=== PATIENT | female | born 1970 | race Caucasian/White ===

== ENCOUNTER 2024-07-07 13:49 | Outpatient (CLI) | payer OTHER, SELFPAY ==
--- OUTSIDE RECORDS SUMMARY | 2024-07-07 14:13 | XMS_ITS | Clinical Summary ---
Author Organization [facility] Address [address] [place] [address] Care Team Providers Care Marketing Analytics Lead Name Role Phone Galindo Olivier MD Primary Care Provider [phone] Source Comments [facility],non-owned Affiliates and Associated Physician Practices is amultiple site organization consisting of ambulatory clinics and hospital sitesin [place] and [place]. This disclosure is being madepursuant to the Care Everywhere program and may not contain all information available regarding this patient. Last updated 17.[facility] Medications * Be aware that medications may not be up to date on this document. Alwaysverify current medications with the patient. Iron, Ferrous Sulfate, 142 (45 FE) MG TBCR Take 25 mg by mouth 2 times daily Active norethindrone (ORTHO MICRONOR; NOR-QD; OCHOA; LORENA; KALEY-BE; GWEN; JOLIVETTE) 0.35 MG tablet Take 1 tablet by mouth once daily Active methylPREDNISol one (MEDROL) 4 MG tabletIndicatio ns:Pain of right clavicle Take 1 tablet by mouth as directed 21 Each 09/13/2017 Active Social History Tobacco Use Types Packs/Day Years Used Date Smoking Tobacco: Never Assessed Comments Unknown Sex and Gender Information Value Date Recorded Sex Assigned at Not on file Legal Sex Female 3:28 PM CDT Gender Identity Not on file Sexual Orientation Not on file Last Filed Vital Signs Vital Sign Reading Time Taken Comments Blood Pressure 148/88 09/13/2017 11:03 AM CDT Pulse 65 09/13/2017 11:03 AM CDT Temperature 36.7 C (98 F) 09/13/2017 11:03 AM CDT Respiratory Rate - - Oxygen Saturation - - Inhaled Oxygen Concentration - - Weight 67.1 kg (148 lb) 09/13/2017 11:03 AM CDT Height - - Body Mass Index - - Plan of Treatment Health Maintenance Due Date Last Done Comments COLOGUARD (AGES 45-75) - COL ON CA SCREENING 1968 COLON MONITORING 1968 COLONOSCOPY - COLON CA SCREENING 1968 CT COLONOGRAPHY - COLON CA SCREENING 1968 Colorectal Cancer Screening 1968 FIT - COLON CA SCREENING 1968 FLEX SIG - COLON CA SCREENING 1968 LIPID TESTING 1968 MAMMOGRAM 1968 HIV SCREENING 06/09/1983 HEPATITIS C SCREENING 06/04/1986 DTAP/TDAP/TD VACCINES (1 - Tdap) 06/09/1987 HEPATITIS B VACCINE (1 of 3 - 19+ 3-dose series) 06/09/1987 PNEUMOCOCCAL VACCINE 50+ (1 of 1 - PCV) 2018 ZOSTER VACCINE (1 of 2) 2018 COVID-19 VACCINE (1 - 2023-2 5 season) 2023 DEPRESSION SCREENING 02/06/2024 INFLUENZA VACCINE (Season Ended) 2024 HIB VACCINE Aged Out No longer eligi ble based on patient's age to complete this topic HPV VACCINE Aged Out No longer eligi ble based on patient's age to complete this topic MENINGOCOCCAL (Group B) VACC INE SHARED DECISION-MAKING Aged Out No longer eligibl e based on patient's age to complete this topic MENINGOCOCCAL GROUPS A/C/Y/W VACCINE Aged Out No longer eligible b ased on patient's age to complete this topic Insurance [employer] Care Teams Marketing Analytics Lead Relationship Specialty Start Date End Date Galindo Olivier MD [address] [place] [address] PCP - General Family Medicine 09/13/17
--- OUTSIDE RECORDS SUMMARY | 2024-07-07 14:13 | XMS_ITS | Data Portability ---
Author Organization [place] - [facility] Women' s Counts include 234 beds at the [facility], EFF_Historical Results Address [address] [place] [address] Assessment Encounter Date Assessment Date Assessment LastModified by Organization Details LastModified Time 12/18/2023 12/18/2023 Persistent cervical dysplasia- pt has had cryo, LEEP in the past. Her transformation zone cannot be visualized, and I am unable to detect ectocervical dysplasia. Her ECC is also negative, and her LEEP is negative. Given persistence of abnormal pap smears and inability to make accurate tissue diagnosis, I have recommended hysterectomy. Pt would like this as well. She has been having this issue since 2008. The patient was counseled on the risks, benefits, and alternatives to hysterectomy. We specifically discussed the route of hysterectomy and determined that total laparoscopic hysterectomy would be the best route in her particular case. Risks, benefits, and alternatives were reviewed including but not limited to pain, infection, bleeding, injury to surrounding viscera, need for additional procedures or larger incisions. We discussed anticipated recovery and restrictions as well as typical outpatient nature of procedure. When applicable alternative medical and/or surgical treatments were reviewed. We discussed that typical recommendations are to complete bilateral salpingectomy and cystoscopy with hysterectomy when possible, and she is agreeable to this as well. She would also like removal of ovaries due to her menopausal status. [email or web address] Not available 12/18/2023 15:24:29 02/25/2024 02/25/2024 1. You are scheduled for surgery at [facility] on 03/10/2024 at Time: 1330. Pre-register at surgery facility. Facility will call 5-7d before the surgery with arrival time. 2. Planned Procedure: TLH/BSO/Cysto by 3. Pre-surgery will discuss when to stop eating and drinking before surgery. 4. You will need to have someone bring you to the facility and take you home after the procedure. 5. Eat plenty of protein in diet leading up to surgery. 6. Try to walk 30 minutes per day leading up to surgery. 7. If smoker try to stop before surgery. If using THC don't use leading up to surgery. 8. Shower the night before the surgery and 2 hours before the surgery. Some facilities will provide special tower cleaner. 9. Pelvic rest after surgery for 6 weeks 10. Theracran (cranberry ) supplement isrecommended to be started 2 days before surgery . nsuck Not available 02/25/2024 11:20:28 03/24/2024 03/24/2024 Path and post op pics reviewed. Path benign. BURAK I of cx. Should not need further paps since no cancer. Can discuss with BRITNI at her post op visit. use stool softeners and miralax prn Pelvic rest 8wk Okay for short walks. No lifting greater than 15 lbs. Okay to see Dr. Kwaku Schmitz and plan for removal of implants in May ns Not available 03/24/2024 13:52:45 04/21/2024 04/21/2024 Restrictions lifted Continue yearly paps per pt request [email or web address] Not available 04/21/2024 12:27:47 Plan of Treatment Reminders Order Date Submit Date Provider Last Modified By Organization Details Last Modified Time Details Appointments Annual Exam 10 2024 10:00A M CHERRY BLACKWELL MD Not available Not available Not available Annual Exam 10 2025 10:30A M CHERRY BLACKWELL MD Not available Not available Not available Lab pap, LB + HR HPV + reflex HPV (16+18) - 05/10/06 LGSIL Cx bx & ECC negative ASCUS +HRHPV8/2 05/14 Cx bx & ECC negative LGSIL +HRHPV4/2 09/18 ECC negative LGSIL +HRHPV2/2 02/24 Cx bx BURAK 1; ECC negative; 04/14/20 LGSIL +HRHPV4/ Cx bx negative; ECC BURAK 110/25/21 LGSIL3/14 LGSIL +HRHPV106/26 LGSIL -HRHPV5/3 0 LGSIL +HRHPV6/2 10/28 Cx bx & ECC negative LEEP negative ASCUS +HRHPV6/1 09/28 LGSIL 2023 024 CHRISTIANNE [facility], [address] [place], [address], 12/28/2023 10:34:33 Referral None recorded. Procedures None recorded. Surgeries total hysterect mague, laparosco pic, with bilateral salpingec jimmy (SURG) 2023 025 [email or web address] Not available 03/13/2024 08:38:07 Imaging None recorded. Medication Orders None recorded. Patient TargetsNo targets recorded. Patient Instructions Encounter Date Encounter Id Patient Instructions Last Modified By Organization Details Last Modified Time 12/28/2023 [id number] pt plans mammogram in 2024 Keep pre-op appt 02-25-24 [email or web address] Not available 12/28/2023 10:34:46 Reason for Referral None Reported. Results Created Date Observation Date Name Description Value Unit Range Abnormal Flag Note LastModifiedBy Organization Detail LastModifiedTime 12/03/1912/06/2023 TISSU E PATHO LOGY clinical information LSIL, +HR HPV 09/26 Not Available [facility] [address] [place], [address], 12/06/2023 15:18:45 12/03/1912/06/2023 TISSU E PATHO LOGY pathologist Rene Greer M.D., Board Certi fied in Anato inocencia Patho logy and Clini namrata Patho logy. (annie hicks) Not Available [facility] [address] [place], [address], 12/06/2023 15:18:45 12/03/1912/06/2023 TISSU E PATHO LOGY report notes Cyto/ Histo corre latio n canno t be perfo rmed since the abnor mal cells in the cervi namrata cytol ogy speci men(s ) were squam ous and the tissu e is prima rily gland ular. Not Available [facility] [address] [place], [address], 12/06/2023 15:18:45 12/03/1912/06/2023 TISSU E PATHO LOGY A source Endoc ervix , curet tage Not Available [facility] [address] [address], [place], [address], 12/06/2023 15:18:45 12/03/1912/06/2023 TISSU E PATHO LOGY A gross description Speci men is recei garcia in 10% neutr al buffe red forma ailyn, label ed with multi ple patie nt ident ifier s and consi sts of multi ple fragm ents of mucoi d mater ial aggre gatin g to 0.5 x 0.5 x 0.1 cm, irreg ular in shape and yello w-whi te in color . The speci men is entir italo submi tted in one casse tte. Gross exam( s) perfo rmed at: [facility] [place] [address] [place] [address], [place] [address] Labor atory Direc tor: MARGA Yan MD Not Available [facility] [address], [place], [address], 12/06/2023 15:18:45 12/03/1912/06/2023 TISSU E PATHO LOGY A diagnosis Benig n endoc ervic al tissu e with mucus and infla mmato ry debri s. No featu res diagn ostic of dyspl daljit or malig krysta . Not Available [facility] [address] [place], [address], 12/06/2023 15:18:45 12/13/1912/14/2023 URINA LYSIS , COMPL ETE color DARK YELLOW yellow normal Not Available [address], [address], 12/14/2023 08:53:02 12/13/1912/14/2023 URINA LYSIS , COMPL ETE appearance CLEAR clear normal Not Available [address], [address], 12/14/2023 08:53:02 12/13/1912/14/2023 URINA LYSIS , COMPL ETE specific gravity 1.025 1.001- 1.035 normal Not Available [address], [address], 12/14/2023 08:53:02 12/13/19 24 12/14/2023 URINA LYSIS , COMPL ETE pH < OR = 5.0 5.0-8. 0 normal Not Available [address], [address], 12/14/2023 08:53:02 12/13/19 24 12/14/2023 URINA LYSIS , COMPL ETE glucose NEGATI VE negati ve normal Not Available [address], [address], 12/14/2023 08:53:02 12/13/19 24 12/14/2023 URINA LYSIS , COMPL ETE bilirubin NEGATI VE negati ve normal Not Available [address], [address], 12/14/2023 08:53:02 12/13/19 24 12/14/2023 URINA LYSIS , COMPL ETE ketones NEGATI VE negati ve normal Not Available [address], [address], 12/14/2023 08:53:02 12/13/19 24 12/14/2023 URINA LYSIS , COMPL ETE occult blood TRACE negati ve abnormal Not Available [address], [address], 12/14/2023 08:53:02 12/13/19 24 12/14/2023 URINA LYSIS , COMPL ETE protein TRACE negati ve abnormal Not Available [address], [address], 12/14/2023 08:53:02 12/13/19 24 12/14/2023 URINA LYSIS , COMPL ETE nitrite NEGATI VE negati ve normal Not Available [address], [address], 12/14/2023 08:53:02 12/13/19 24 12/14/2023 URINA LYSIS , COMPL ETE leukocyte esterase NEGATI VE negati ve normal Not Available [address], [address], 12/14/2023 08:53:02 12/13/19 24 12/14/2023 URINA LYSIS , COMPL ETE WBC 0-5 /hpf < or = 5 normal Not Available [address], [address], 12/14/2023 08:53:02 12/13/19 24 12/14/2023 URINA LYSIS , COMPL ETE RBC 0-2 /hpf < or = 2 normal Not Available [address], [address], 12/14/2023 08:53:02 12/13/19 24 12/14/2023 URINA LYSIS , COMPL ETE squamous epithelial cells 10-20 /hpf < or = 5 abnormal Not Available [address], [address], 12/14/2023 08:53:02 12/13/19 24 12/14/2023 URINA LYSIS , COMPL ETE bacteria NONE SEEN /hpf none seen normal Not Available [facility] [address], [address], 12/14/2023 08:53:02 12/13/19 24 12/14/2023 URINA LYSIS , COMPL ETE calcium oxalate crystals MODERA TE /hpf none or few abnormal Not Available [facility] [address], [address], 12/14/2023 08:53:02 12/13/19 24 12/14/2023 URINA LYSIS , COMPL ETE hyaline cast 10-20 /lpf none seen abnormal Not Available [facility] [address], [address], 12/14/2023 08:53:02 12/13/19 24 12/14/2023 CULTU RE, URINE , ROUTI NE culture, urine, routine SEE NOTE CULTU RE, URINE , ROUTI NE Micro Numbe r: [id number] Test Statu s: Final Speci men Sourc e: Urine Speci men Quali ty: Adequ ate Resul t: No Growt h Not Available [address], [address], 12/14/2023 20:15:51 03/05/19 25 03/05/2024 HEMAG REGAN WBC 6.94 x10'3 /uL 4.60-9 .10 Not Available [address], [address], 03/05/2024 12:54:41 03/05/19 25 03/05/2024 HEMAG REGAN RBC 5.04 x10'6 /uL 3.90-5 .00 high Not Available [address], [address], 03/05/2024 12:54:41 03/05/19 25 03/05/2024 HEMAG REGAN hemoglobin 14.9 g/dL 11.8-1 4.7 high Not Available [address] [place], [address], 03/05/2024 12:54:41 03/05/19 25 03/05/2024 HEMAG REGAN hematocrit 45.0 % 36.3-4 5.2 Not Available [address], [address], 03/05/2024 12:54:41 03/05/19 25 03/05/2024 HEMAG REGAN MCV 89.3 fL 80.0-9 8.0 Not Available [address], [address], 03/05/2024 12:54:41 03/05/19 25 03/05/2024 HEMAG REGAN MCH 29.6 pg 26.8-3 2.1 Not Available [address], [address], 03/05/2024 12:54:41 03/05/19 25 03/05/2024 HEMAG REGAN MCHC 33.1 g/dL 30.7-3 4.2 Not Available [address], [address], 03/05/2024 12:54:41 03/05/19 25 03/05/2024 HEMAG REGAN RDW 13.7 % 12.0-1 4.8 Not Available [address], [address], 03/05/2024 12:54:41 03/05/19 25 03/05/2024 HEMAG REGAN platelet count 341 x10'3 /uL 145-35 8 Not Available [address], [address], 03/05/2024 12:54:41 03/05/19 25 03/05/2024 HEMAG REGAN MPV 10.2 fL 8.8-12 .3 Not Available [address], [address], 03/05/2024 12:54:41 03/05/1903/05/2024 BASIC METAB OLIC PANEL sodium 137 mmol/ L 136-14 5 Not Available [address], [address], 03/05/2024 13:14:16 03/05/1903/05/2024 BASIC METAB OLIC PANEL potassium 3.8 mmol/ L 3.5-5. 1 Not Available [address], [address], 03/05/2024 13:14:16 03/05/1903/05/2024 BASIC METAB OLIC PANEL chloride 105 mmol/ L 97-115 Not Available [address], [address], 03/05/2024 13:14:16 03/05/1903/05/2024 BASIC METAB OLIC PANEL total CO2 26.0 mmol/ L 21.0-3 2.0 Not Available [address], [address], 03/05/2024 13:14:16 03/05/1903/05/2024 BASIC METAB OLIC PANEL glucose 89 mg/dL 74-106 Not Available [address], [address], 03/05/2024 13:14:16 03/05/1903/05/2024 BASIC METAB OLIC PANEL BUN 12 mg/dL 7-18 Not Available [address], [address], 03/05/2024 13:14:16 03/05/1903/05/2024 BASIC METAB OLIC PANEL creatinine 0.77 mg/dL 0.55-1 .02 Not Available [address], [address], 03/05/2024 13:14:16 03/05/19 25 03/05/2024 BASIC METAB OLIC PANEL calcium 9.3 mg/dL 8.5-10 .1 Not Available [facility] [address] [place], [address], 03/05/2024 13:14:16 03/05/19 25 03/05/2024 BASIC METAB OLIC PANEL anion gap 6.0 mmol/ L 2.0-10 .0 Not Available [facility] [address] [place], [address], 03/05/2024 13:14:16 03/05/19 25 03/05/2024 BASIC METAB OLIC PANEL osmolality calc 283 mOsm/ kg REFER ENCE RANGE NOT ESTAB LISHE D Not Available [facility] [address] [place], [address], 03/05/2024 13:14:16 03/05/19 25 03/05/2024 BASIC METAB OLIC PANEL est GFR >90 mL/mi n/1.7 3_M2 >89 Not Available [facility] [address] [place], [address], 03/05/2024 13:14:16 03/05/19 25 03/05/2024 BASIC METAB OLIC PANEL GFR notes GFR REFERE NCES: THE ESTIM ATED GFR IS CALCU LATED USING THE 2020 CKD-E PI EQUAT ION. THE FOLLO WING CATEG ORIES FOR GRADI NG RENAL FUNCT ION ARE RECOM JENNIFER D BY THE INTER NATIO NAL SOCIE TY OF NEPHR OLOGY (KDIG O 2012 CLINI NAMRATA PRACT ICE GUIDE LINE) . G1,NO RMAL OR HIGH: >89 ml/mi n/1.7 3 m2 G2,ME LDLY DECRE ASED: 60-89 ml/mi n/1.7 3 m2 G3A,M ILDLY TO MODER ATELY DECRE ASED: 45-59 ml/mi n/1.7 3 m2 G3B,M ODERA TELY TO SEVER ITALO DECRE ASED: 30-44 ml/mi n/1.7 3 m2 G4,SE VEREL Y DECRE ASED: 15-29 ml/mi n/1.7 3 m2 G5,KI DNEY FAILU RE: <15 ml/mi n/1.7 3 m2 Not Available [address], [address], 03/05/2024 13:14:16 03/05/19 25 03/05/2024 TYPE AND SCREE N ABO/Rh(D) B POSITI VE Not Available [address], [address], 03/05/2024 14:27:11 03/05/19 25 03/05/2024 TYPE AND SCREE N antibody screen NEGATI VE Not Available [address], [address], 03/05/2024 14:27:11 03/05/19 25 03/05/2024 TYPE AND SCREE N xm expiration 2024,2 359 Not Available [facility] [address] [place], [address], 03/05/2024 14:27:11 03/10/19 25 03/10/2024 PREG TEST, URINE preg test, urine NEGATI VE Not Available [address], [address], 03/10/2024 16:05:34 03/10/19 25 03/14/2024 S SURGI NAMRATA PATHO LOGY path report [facility] Dep[facility] tment of Labor atory Medic ine [address] [facility] [address] [facility] [facility] [place] [address] Telep christian: , exten [place] [id number] 07 Patho logy Repor t Surgi namrata Patho logy Repor t Name: FRANCK MONTOYA Speci men #: [id number] Age: [birth year] (Age: 53) Locat ion: [facility] IF Sex: F Proce dure Date: 025 Hospi toni #: [id number] 139 Date Recei garcia: 2/5/[birth year] 025 Date Repor hallie: 025 Provi sadaf: RUBIO Catherine MD [facility] e: Uteru s, cervi x, bilat eral tubes , and ovari es Clini namrata Histo ry: Cervi namrata dyspl daljit, histo ry of vane l Paps, and LEEP in 2022 negat bryant FINAL DIAGN OSIS: Uteru s, cervi x, bilat eral fallo pian tubes , and ovari es, hyste recto my: -Cerv ix: Focal low grade squam ous intra epith elial lesio n. Negat bryant for high grade squam ous intra epith elial lesio n. -Endo metri um: Inact bryant endom etriu m with no evide nce of hyper plasi a or malig krysta . -Myom etriu m: Benig n leiom yomat a. -Fall opian tubes : No signi fican t histo patho logic abnor malit ies. -Ovar ies: No signi fican t histo patho logic abnor malit ies. Gross Descr iptio n: Recei garcia in forma ailyn, label ed with a patie nt's label and uter us, cervi x, bilat eral fallo pian tubes and ovari es, is an intac t uteru s with attac hed cervi x and attac hed bilat eral adnex a. The entir e speci men is a 74 g. The uteru s is a 48 g, 3.7 cm fundu s to cervi x, 3.8 cm cornu to cornu , and 3.1 cm anter ior to poste rior. The seros al surfa ce is purpl e-mendieta , taylor h, and glist ening . The cervi x is 3.0 cm in lengt h and 2.[address]. The ectoc ervix is 3.1 x 3.0 cm, purpl e-mendieta , and taylor h with a 0.9 cm ovoid os. The cervi x is inked follo ws: Blue- anter ior, black -post erior , and green -endo cervi x. The speci men is bival garcia. The endoc ervix is 3.0 cm super ior-t o-inf erior with pink- mendieta mucos a that exhib its a herri ngbon e appea kevin . The uteri ne cavit y is 2.5 cm super ior-t o-inf erior and 2.1 cm cornu to cornu with pink- mendieta mucos a and scant petec hiae. Secti ons revea l 2 white -mendieta isrrael d nodul es on the poste rior uteru s rangi ng from 0.2 to 0.8 cm in [facility] [place]. There are no areas of softe rachel, hemor rhage , or necro sis. The pink- mendieta endom etria l avera ge thick ness is 0.1 cm and the maxim um uninv olved myome trial thick ness is 1.4 cm. The right ovary is 3 g and 2.3 x 1.7 x 0.9 cm. The seros al surfa ce is white -mendieta and sligh tly cereb rifor m. Secti ons revea l white -mendieta cut surfa elizabeth. There are no gross ly ident ifiab le chun s or lesio ns. The right fimbr iated fallo pian tube is 5.2 cm in lengt h and 0.[address] The fimbr ia are purpl e-bro wn. The seros al surfa ce is purpl e-mendieta , taylor h, and convo luted . There are multi ple parat ubal cyst rangi ng from 0.1 to 0.3 cm in [facility] [place] that conta in straw -colo red fluid . Secti ons revea l purpl e-mendieta cut surfa elizabeth. A pinpo int lumen is ident ified . There are no gross ly ident ifiab le chun s or lesio ns. The left ovary is cysti c, 18 g, and 4.1 x 3.4 x 3.0 cm. The seros al surfa ce is white -mendieta and taylor h. Secti ons revea l 2 cyst there are 0.5 and 4.1 cm in [facility] est [facility] [place] that conta in straw -colo red fluid . Vane l ovari an paren chyma is ident ified . There are no gross ly ident ifiab le chun s, lesio ns, or papil carolina excre scenc es. The left fimbr iated fallo pian tube is 5.7 cm in lengt h and 0.[address] The fimbr ia are purpl e-bro wn. The seros al surfa ce is purpl e-mendieta , taylor h, and convo luted . Secti ons revea l purpl e-mendieta cut surfa elizabeth. There are no gross ly ident ifiab le chun s or lesio ns. Repre senta tive secti ons are submi tted as follo ws: 1-412 :00 to 3:00 cervi x 5-73: 00 to 6:00 cervi x 8-116 :00 to 9:00 cervi x 12-15 9:00 to 12:00 cervi x 16ful l-thi cknes s secti on of endom yomet rium 17add ition al endom yomet rium 18pos terio r whorl ed nodul es entir italo submi tted 19rep resen tativ e secti on of right ovary 20 - right fimbr ia entir italo submi tted and repre senta tive cross -sect ions of right fallo pian tube 21rep resen tativ e secti ons of left ovary 22lef t fimbr ia entir italo submi tted and repre senta tive cross -sect ions of left fallo pian tube Gross exami natio n (when appli cable ) was perfo rmed at [facility], [address] [facility], [place] [address] . This case was inter prete d and beth d out at [facility] [address] [place] [address] . Emmy sherlynon christian y Beth d Out DOROTHEA Jansen MD Not Available [address], [address], 03/14/2024 11:38:19 12/13/19 24 04/27/2022 MAMMO , scree rachel, bilat eral No observ ation record ed. [facility] [address] [place], [address], 12/13/2023 11:53:41 12/13/19 24 12/13/2023 US, pelvi s No observ ation record ed. [facility] [address] [address], [place], [address], 12/13/2023 12:48:22 04/01/19 25 04/14/2020 imagi ng/di agnos tic resul t No observ ation record ed. Not Available 04/01/2024 05:33:37 04/01/19 25 04/18/2021 imagi ng/di agnos tic resul t No observ ation record ed. Not Available 04/01/2024 05:33:40 04/01/19 25 04/27/2022 imagi ng/di agnos tic resul t No observ ation record ed. Not Available 04/01/2024 05:33:43 06/25/19 25 06/24/2024 mg cr kumarig impla nt W oneyda uriel digi This is a summar y report . The comple te report is availa ble in the patien t's medica l record . If you cannot access the medica l record , please contac t the sendin chema tiwari for a detail ed fax or copy. [facility] y's Mammog cynthia at [facility] [employer] TECHNICIAN [address] [place] [address] [phone] Examin ation: BILATE RAL SCREEN ING MAMMOG REGAN Exam Date: 025 2:39 PM Access ion: [id number] Clinic al Indica tion: 54 years of age female routin e screen ing. No person al or family histor y of breast cancer . Bilate ral breast implan ts. Compar karli: Mammog chaparro dating back to 08/13/19 11. Techni que: Digita l CC and MLO views. Tomosy nthesi s imagin g acquis ition. Study read with the assist ance of a [employer] er-aid ed detect ion system . Tissue densit y:Ther e are scatte red areas of fibrog landul ar densit y. Findin gs: Stable fibrog landul ar patter n bilate rally. Benign calcif icatio ns. Stable small benign nodule s within the upper- outer breast bilate rally. Benign axilla ry lymph nodes. No suspic ious masses , malign ant appear ing calcif icatio ns, skin thicke rachel or other abnorm alitie s are presen t. No findin gs of concer n with comput er-ass isted softwa re. IMPRES [place]: No interv al featur es to sugges t malign leilani. In the absenc e of clinic al sympto ms, return for annual screen ing due in one year. Recomm endati on: Routin e Screen ing Bilate ral. Assess ment: ACR BI-RAD S 2 - BENIGN FINDIN G(S) Ordere d By: TONO Jansen DUST Electr onical ly Signed By: Gregg Brito DO on 025 3:47 PM Interp reted By: Gregg Brito DO, 025 3:41 PM [email or web address] [facility] [address] [place], [address], 06/25/2024 09:03:15 Result Notes None recorded. Problems Name Problem SNOMED Code Status Onset Date Resolution Date Notes Provider Name and Address Organization Details Recorded Time History of abnormal cervical Papanicolaou smear 523710419 Active 2023 7 LSIL, CxBx-n eg, Ecc-ne g; ASCUS +HRHPV ; CxBx-n eg, Ecc-ne g; 4 LGSIL + HR HPV; 4 ECC-ne g; 02/09/19 LGSIL +HRHPV ; 020 Cx Bx BURAK I; 10/15/19 LGSIL HPV+; 05/07/20 BURAK I; LGSIL; 2 LGSIL HPV+; 2 LGSIL -HPV; 3 LGSIL +HPV; 3 CxBx: Neg, ECC: Neg; 10/06/22 LEEP: Normal ; 4 ASCUS +HR HPV; 4 LGSIL +HR HPV; 4 LGSIL +HR HPV; CxBx: Neg, ECC: Neg [place]iced[place], [place] - [place] [facility] Counts include 234 beds at the [facility] 4 13:03:11 Endometriosis (clinical) 040545198 Active 2023 Ana She[place]on null, [place] [facility] Counts include 234 beds at the [facility] 4 13:03:20 Neuropathy 760564567 Active 2023 [place], [place] [facility] Counts include 234 beds at the [facility] 4 13:03:33 Exposure to mold Active 2021 Say Che[place] [facility] Counts include 234 beds at the [facility] 5 09:38:36 History of hysterectomy 251515989 Active 2024 [place] Che[place] [facility] Counts include 234 beds at the [facility] 5 09:38:36 Insomnia 917278897 Active 2012 Say [place] [facility] Counts include 234 beds at the [facility] 5 09:38:36 Dyspnea 723779027 Active 2021 Say [place] [facility] Counts include 234 beds at the [facility] 5 09:38:36 Peripheral nerve disease 053899599 Active 2013 Say [place] [facility] Counts include 234 beds at the [facility] 5 09:38:36 History of bilateral salpingo-ooph orectomy 696778660 Active 2024 Say Cheung [place], [place] [facility] Counts include 234 beds at the [facility] 5 09:38:36 Dysplasia of cervix 78074109 Active 2024 [place], [place] [facility] 09:38:36 History of total hysterectomy with bilateral salpingo-ooph orectomy 802909110 Active 2024 ANDREI PALACIOS PA-C [address] [place] [address], [id number] , [facility] 13:51:04 Problem Notes None recorded. Procedures Surgical History Date Name Laterality Status Provider Name and Address Organization Details Recorded Time 06/25/19 25 Date of Last Mammogram completed Anai Sales [facility] 06/25/2024 09:01:46 03/10/19 25 Hysterectomy and BSO completed Jeanna Eaton [facility] 03/11/2024 12:02:21 12/03/19 24 EFF Colposcopy - Cervix completed CHERRY BLACKWELL MD [address] [place] [address], [phone], [facility] 12/03/2023 12:34:47 07/24/19 24 Date of Last Pap Smear completed Anai Sales [facility] 07/31/2023 18:00:16 10/07/19 23 LEEP completed Anai [facility] 07/19/2023 11:00:48 07/15/19 16 Date of Last Colonoscopy completed Anaiteresita Lee [facility] 07/19/2023 10:51:54 07/15/19 16 Colonoscopy completed Anai Lee [facility] 07/19/2023 11:00:13 07/15/19 16 Laparoscopy completed Ana Sheldon [facility] 12/26/2023 13:07:28 02/07/19 12 Cholecystectomy completed Anai Lee [facility] 07/19/2023 11:00:00 Colposcopy completed Ana Sheldon [facility] 12/26/2023 13:05:33 cryotherapy completed Ana Sheldon [facility] 12/26/2023 13:06:00 Imaging Results None recorded. Procedure Notes None recorded. Medical Equipment None Reported. Allergies Allergen ID Allergen Name Allergen Category Reaction Reaction Severity Criticality Documentation Date Start Date Code Code System Note Provider Name and Address Organization Details Recorded Time 49058 ethinyl estradiol / levonorge strel medicatio n Not available Not available Not available 09/27/2023 18999 8 RxNorm Say Jonatan null, [place] - Together [facility] 10:44:13 68551 Augmentin medicatio n Not available Not available Not available 02/25/2024 18661 2 RxNorm Say Jonatan null, [place] - Together [facility] 5 10:44:29 Medications Name Sig Start Date Stop Date Status Note LastModified by Organization Details LastModified Time Prescript ion - Clarifica tion active Imported - med refill Not Available Not Available Not Available semagluti de 1mg/methy lcobalami n 1mg/ondan setron 4mg maria ines Starting dose- Place 1/2 maria ines under the tongue (let maria ines complete ly dissolve ) every 3 days (twice weekly) for 2 weeks, then increase to 1 maria ines (1mg) every 3 days for an addition al 2 weeks active Not Available Not Available No t Available amoxicill in 500 mg capsule 07/23 completed Not Available Not Available Not Available prednison e 10 mg tablet 03/10 completed Not Available Not Available Not Available azithromy burak 250 mg tablet TAKE 2 TABLETS BY MOUTH ON DAY 1, AND THEN TAKE 1 TABLET BY MOUTH ONCE A DAY ON DAY 2 THROUGH DAY 5 active Not Available Not Available No t Available promethaz ine 12.5 mg tablet Take 1 tablet 4 times a day by oral route as needed, for nausea. 02/24 completed Not Available Not Available Not Available docusate sodium 100 mg capsule 100 mg twice a day by oral route. 03/12 completed Not Available Not Available Not Available ibuprofen 600 mg tablet 600 mg every 6 hours by oral route. 03/22 completed Not Available Not Available Not Available levofloxa burak 500 mg tablet 07/23 completed Not Available Not Available Not Available fluoxetin e 20 mg capsule 07/23 completed Not Available Not Available Not Available oxycodone 5 mg tablet Take 5 mg every 6 hours by oral route. 03/24 completed Not Available Not Available Not Available Prempro 0.3 mg-1.5 mg tablet 07/23 completed Not Available Not Available Not Available Vitals Date Recorded Body height Body mass index (BMI) Body weight Systolic blood pressure Diastolic blood pressure Provider Name and Address Organization Details Last Updated DateTime 02/25/2024 167.64 cm 27.8 kg/m2 73321.89 g 128 mm[Hg] 78 mm[Hg] Say Cheung [facility] 5 10:45:35 Date Recorded Body height Body mass index (BMI) Body weight Systolic blood pressure Diastolic blood pressure Provider Name and Address Organization Details Last Updated DateTime 03/24/2024 167.64 cm 27.3 kg/m2 25219.11 g 128 mm[Hg] 80 mm[Hg] Say Cheung [facility] 5 12:35:44 Date Recorded Body height Body mass index (BMI) Body weight Systolic blood pressure Diastolic blood pressure Provider Name and Address Organization Details Last Updated DateTime 04/21/2024 167.64 cm 27.8 kg/m2 17548.89 g 128 mm[Hg] 80 mm[Hg] Say Cheung [facility] 5 11:55:49 Date Recorded Body height Body mass index (BMI) Body weight Systolic blood pressure Diastolic blood pressure Provider Name and Address Organization Details Last Updated DateTime 12/18/2023 167.64 cm 26.8 kg/m2 29307.33 g 132 mm[Hg] 84 mm[Hg] Say Cheung [facility] 4 14:53:45 Date Recorded Body height Body mass index (BMI) Body weight Systolic blood pressure Diastolic blood pressure Provider Name and Address Organization Details Last Updated DateTime 12/28/2023 167.64 cm 27.1 kg/m2 42728.52 g 126 mm[Hg] 62 mm[Hg] Vega Dai [facility] 4 10:02:57 Social History Question Answer Notes LastModified by Organizat ion Details LastModified Time Tobacco Smoking Status Never Smoker Anai Lee [facility], [place] - Together [facility] include 234 beds at the [facility] 07/24/2023 10:07:35 What Is Your Level Of Caffeine Consumption? Occasional [email or web address] Information not available 07/24/2023 What Type Of Diet Are You Following? REGULAR [email or web address] Information not available 09/27/2023 Have There Been Any Changes To Your Family Or Social Situation? Yes [email or web address] Information not available 09/27/2023 What Is The Highest Level Of School You Have Completed Or The Highest Degree You Have Received? Associate Degree [email or web address] Information not available 09/27/2023 How Do You Identify Yourself? Heterosexual [email or web address] Information not available 09/27/2023 What Is Your Ethnicity? Information not available 12/13/2023 What Was The Date Of Your Most Recent Tobacco Screening? 02/25/2024 [email or web address] Information not available 02/25/2024 What Is Your Relationship Status? [email or web address] Information not available 09/27/2023 Are There Any Smokers In Your House? No [email or web address] Information not available 09/27/2023 How Much Tobacco Do You Smoke? No [email or web address] Information not available 07/24/2023 Sex: Female Functional Status Question Answer Note LastModified by Organizat ion Details LastModified Time Do you use any illicit or recreational drugs? No [email or web address] Information not available 07/24/2023 Do you or have you ever used any other forms of tobacco or nicotine? No [email or web address] Information not available 07/24/2023 What is your level of alcohol consumption? Occasional Information not available 07/24/2023 Are you currently employed? No [email or web address] Information not available 07/24/2023 What is your exercise level? Occasional [email or web address] Information not available 09/27/2023 Mental Status None recorded. Family History Relationship Description Onset Age of this Age Resolved Age Notes LastModified by Organization Details LastModified Time Maternal Grandfather Family history of Congenital heart disease [email or web address] Not available 2023 10:53:38 Maternal Grandmother Family history of Congenital heart disease [email or web address] Not available 2023 10:53:38 Maternal Grandmother Family history of diabetes mellitus Type II [email or web address] Not available 07/19/2023 10:55:24 Maternal Grandmother Family history of osteoporosis Not available 10:55:42 Mother Family history of Hypertension [email or web address] Not available 10:53:50 Mother Family history of Thyroid disorder [email or web address] Not available 2023 10:55:56 Paternal Grandmother Family history of osteoporosis Not available 10:55:42 Medical History Condition Response Other N Blood Transfusion N Depression N Gestational Diabetes N Anxiety Disorder N Arthritis N Acid Reflux (GERD) N Stroke N Neurologic Disorder N Fibromyalgia N Kidney Disease N Cancer Endometrial N Migraines N Eating Disorder N Cancer Colon N Cancer Uterine N Asthma N Cancer Ovarian N Allergies (Food, seasonal, environmental ) Y Thyroid Disease N Cancer Breast N Lung Disease N Cancer Other N Endometriosis Y High Cholesterol N Liver Disease N Deep Vein Thrombosis (DVT) or Pulmonary Embolism (PE) N Autoimmune Disease N GI Problems N Hematologic (Blood) Disorder N Anemia N Psychiatric Disorder N Thrombophilia N Diabetes N Polycystic Ovary Syndrome (PCOS) N Defects N Heart Disease N Hypertension N Osteoporosis N Gynecological History Statement/Question Response Abnormal Pap Yes Date of Last Mammogram 06/24/2024 Date of LMP 02/01/2015 Post Menopausal Bleeding N STIs/STDs Y HPV Vaccine N Age at Menarche 10 Current Control Method Sterilizati on Date of Last DEXA Date of Last Colonoscopy 07/15/2015 Sexually Active? Y Menses Monthly N Date of Last Pap Smear 07/24/2023 Hormone Replacement Therapy N Obstetrics History GPAL:G 2 P 1 0 1 1 Type Value Full Term 1 Spontaneous 1 Living 1 Total 2 Immunizations Vaccine Type Date Status Note Provider Nam e and Address Organization Details Recorded Time Influenza, split virus, quadrivalent, preservative 0 completed Say Cheung [facility] [place] - [facility] Women's Counts include 234 beds at the [facility] 03/20/2024 09:38:36 Past Encounters Encounter ID Performer Location Encounter Start Date Encounter Closed Date Diagnosis/Indication Diagnosis SNOMED-CT Code Diagnosis ICD10 Code Diagnosis Note [id number] TARIK BEAUCHAMP MD [facility] [address] [place] [address] 07/24/2023 09:54:20 07/24/2023 11:59:28 Screening for malignant neoplasm of cervix 702445722 Z12.4 Menopausal syndrome 1237 51632 N95.9 Obesity 110262901 E66.9 [id number] MD DENIS HAYS_Robert menard [address] [place] [address] 09/27/2023 12:04:23 09/27/2023 12:54:41 Abnormal cervical Papanicolaou smear 277557119 R87.619 Z11.3 [id number] MD DENIS HAYS_Robert menard [address] [place] [address] 12/03/2023 11:50:11 12/03/2023 12:39:56 Low grade squamous intraepithelial lesion on cervical Papanicolaou smear 0074625872 9105 R87.612 [id number] MD Ericka HAYS [address] [place] [address] 12/13/2023 09:24:13 12/13/2023 16:46:09 Chronic pelvic pain of female 260274422 R10.2 h/o endometrio sis.Tyleno l and motrin for discomfort .Phenergan for pain/nause a.US essentiall y normal. Endo 1.9mm. Left 30mm simple cyst.keep appt with BRIT[facility] to discuss surgical options. Nausea and vomiting 1692 1999 R11.2 May just have a virus. Push fluids. Rest. Cyst of left ovary 34271 93880 9505160 N83.202 simple around 3 cm. [id number] MD Ericka HAYS [address] [place] [address] 12/18/2023 14:38:58 12/18/2023 15:26:21 Dysplasia of cervix 33771239 N87.9 [id number] MD Ericka HAYS [address] [place] [address] 8 12/28/2023 09:54:33 12/28/2023 11:00:15 Screening for malignant neoplasm of cervix 762046359 Z12.4 [id number] CHERRY DUST, MD EFF_[address] [address] 02/25/2024 10:40:50 02/25/2024 12:00:42 History of dysplasia of cervix 157946887 Z87.410 Pre-surger y evaluation 675753627 Z01.818 History of loop electrosurgical excision procedure 5353911635 9102 Z98.890 [id number] MD DENIS HAYS_[address] [address] 03/24/2024 12:19:45 03/24/2024 12:49:22 History of total hysterectomy with bilateral salpingo-oophorectomy 096675343 Z90.79 s/p TLH/BSO/cy sto [id number] CHERRY BLACKWELL MD EFF_[address] [address] 04/21/2024 11:10:03 04/21/2024 12:28:06 Postoperative care 473405854 Z48.89 Health Concerns Section Related Observation LastModified by Organization Detai ls LastModified Time None Recorded Concern Status LastModified by Organization Details LastModified Time None Recorded Advance Directives Directive None Recorded Payers Insurance Date Sequence Insurance Name Policy Number Policy Aranda Covered Member ID Aranda Member ID Guarantor Name 04/18/2024 1 [employer] [id number] Franck Wallaec [id number] Franck Browne Notes Date Note Type Note Provider Name and Address Organization Details Recorded Time 12/18/2023 text/html Patient comes in today for follow-up visit to review lab results culture results biopsy results starting a new medication ultrasound . The patient has stayed the same since last visit. The results of her lab result of her biopsy medication ult rasound was reviewed in detail with her. Treatment and follow up were discussed. CHERRY BLACKWELL MD [address] [place] [address], [phone], [facility] Women's Counts include 234 beds at the [facility] 12/18/2023 15:25:29 12/28/2023 text/html Repeat Pap SmearReported bypatient.Shahid/George g:last pap smear performed: (09/27/2023); last colposcopy performed: (12/03/2023) Context:prior pap test results: LSIL; prior colposcopy results: normal; prior cryotherapy; prior LEEP; not sexually active Associated Symptoms:no abnormal vaginal bleeding; no abnormal bleeding; no vulvar lesions; no condyloma; no change in bowel or bladder function;pelvic pain; ovarian cysts Pt scheduled for TLH in . She is here for a repeat pap. MASSIEL GAMING APN [address] [place], [address], [facility] 12/28/2023 10:35:32 02/25/2024 text/html This patient pre sents for a preoperative visit. She is scheduled for a TLH/BSO Indication: prior now at term malpresentation suspected macrosomia pelvic pain endometriosis ri ght ovarian cyst left ovarian cyst symptomatic fibroids dysmenorrhea dyspareunia adnexal mass stress incontinence uterine prolapse endometrial polyp sterilization c ystocele rectocele dy splasia of cervix Currently using any meds for weight loss: no Use of anticoagulants: no The patient was counseled re; the following risks: Infection, bleeding, damage to close by organs, DVT, hemorrhage, and potential wound complications. Alternative treatments include the following; Persistent cervical dsyplasia with prior cryotherapy/LEEP in past. The procedure was reviewed in detail. Postoperative issues that she can expect may include, but not limited to: vaginal bleeding, pelvic cramping, shoulder pain, bloating, urinary issues, post op n/v. Post op pain to be controlled with narcotics: yesPost op pain to be controlled with NSAIDS: yes Restrictions on lifting: yesRestrictions on returning back to work: off work for 6wk--she is retired so no issue. The patient was given adequate time to ask all questions and receive answers to her satisfaction. She demonstrated an understanding of the discussion ANDREI PALACIOS PA-C [address] [place], [address], [facility] 02/25/2024 11:22:49 03/24/2024 text/html Post-OpReported bypatient.Onset/Timin g:date of surgery: (03/10/2024) Quality:procedure: (Total laparoscopic hysterectomy, bilateral salpingo-oophorectomy and cystoscopy.) Context:reason for procedure: (persistant cervical dysplasia); operative findings: (Cervix was scarred. Uterus was normal and sounded to 7 cm. Normal bilateral fallopian tubes and ovaries. Normal bladder and bilaterally patent ureteral orifices on cystoscopy.); operative complications: (none); postoperative complications: (none); pathology findings: (benign) Associated Symptoms:incision healing well; no fatigue; normal appetite; no emesis; pain improving; no fever; no bleeding; no lower extremity edema/pain; no dysuria/urinary symptoms;abnormal bowel function;constipation ;nauseaNotes:Not using oxycodone. Did do an enema and that helped her bowels. Overall feels great. No concerns. ANDREI PALACIOS PA-C [address] [place] [address], [phone], [facility] 03/24/2024 13:53:06 04/21/2024 text/html Post-OpReported bypatient.Onset/George g:date of surgery: (03/12/24) Quality:procedure: (TLH, BSO with cystoscopy BR[facility]) Context:reason for procedure: (Persistent cervical dysplasia.); operative findings: (Cervix was scarred. Uterus was normal and sounded to 7 cm. Normal bilateral fallopian tubes and ovaries. Normal bladder and bilaterally patent ureteral orifices on cystoscopy.); operative complications: (none); postoperative complications: (none); pathology findings: (benign) Associated Symptoms:incision healing well; no fatigue; normal appetite; normal bowel function; no constipation; no nausea; no emesis; pain improving; no pain; no fever; no bleeding; no lower extremity edema/pain; no dysuria/urinary symptoms CHERRY BLACKWELL MD [address] [place] [address], [phone], [facility] 04/21/2024 12:27:59 OBGyn Episode Ob Episode Information Episode Created Date Number of Fetuses Patient Bloodtype Patient rh Status Prepregnancy Weight lbs Domestic Partner Domestic Partner Phone Father Name [employer] Status 07/19/19 24 1 CLOSED Fetus Data First Name Last Name Admitted to NICU Weight (g) Sex Living Outcome Pediatric Complications Fetus ID Race Codes Race Delivery Type 3118.44 5 M Full Term [id number] Vaginal Venu Calculation Initial Venu Date Initial Exam Date Initial Exam Provider Initial Ultrasound Date Last Menstrual Period Date Ultra Sound Weeks Gestation 0 Eighteen To Twenty Week Venu Update Ultra Sound Date Fundal Height At Umbil Quickening Date Ultra Sound Latest Weeks Gestation Final Venu Confirmed By Final Venu Confirmed Date Final Venu Date Ultra Sound Latest Days Gestation 0 0 Menstrual History Last Menstrual Date Menses Monthly On Bcp Conception Prior Menses Frequency Hcg Plus Date Menarche Onset Age Delivery Information Delivery Date Delivery Type Labor Anesthesia Weeks Gestation Incision Type Labor Labor Length Hrs Delivered By Post Complications Tubal Sterilization Discharge Date Comments 4 Regional-Ep idural 38 false 16 PK Discharge Information Feeding Method Contraceptive Method Maternal HG B and HCT Levels Ob Episode Information Episode Created Date Number of Fetuses Patient Bloodtype Patient rh Status Prepregnancy Weight lbs Domestic Partner Domestic Partner Phone Father Name [employer] Officer Status 07/19/19 24 1 CLOSED Fetus Data First Name Last Name Admitted to NICU Weight (g) Sex Living Outcome Pediatric Complications Fetus ID Race Codes Race Delivery Type , Spontane ous [id number] Venu Calculation Initial Venu Date Initial Exam Date Initial Exam Provider Initial Ultrasound Date Last Menstrual Period Date Ultra Sound Weeks Gestation 0 Eighteen To Twenty Week Venu Update Ultra Sound Date Fundal Height At Umbil Quickening Date Ultra Sound Latest Weeks Gestation Final Venu Confirmed By Final Venu Confirmed Date Final Venu Date Ultra Sound Latest Days Gestation 0 0 Menstrual History Last Menstrual Date Menses Monthly On Bcp Conception Prior Menses Frequency Hcg Plus Date Menarche Onset Age Delivery Information Delivery Date Delivery Type Labor Anesthesia Weeks Gestation Incision Type Labor Labor Length Hrs Delivered By Post Complications Tubal Sterilization Discharge Date Comments 4 Discharge Information Feeding Method Contraceptive Method Maternal HG B and HCT Levels
[2024-07-07 14:26] LABS: Hematocrit 49.2 % (37.0-47.0); Mean Corpuscular HGB Conc 32.5 g/dl (32-36); Mean Corpuscular Hemoglobin 28.7 pg (26-34); Mean Corpuscular Volume 88.3 fl (80-100); Mean Platelet Volume 10.1 fl (7.4-10.4); Platelet Count Result 338 k/mm3 (150-375); Red Blood Count 5.57 M/mm3 (4.2-5.4); White Blood Count 10.5 K/mm3 (4.5-10.0)
== END 2024-07-07 13:50 | disposition home or self-care (01) ==
PROVIDERS: Visit Provider Surgery Plastic and Reconstructive Surgery
DX: D50.9 Iron deficiency anemia, unspecified (principal)
CPT/HCPCS: 36415; 85027

== ENCOUNTER 2024-07-22 03:26 | Day surgery (SDC) | payer OTHER, SELFPAY ==
[2024-07-10 14:32] VITALS: BMI 31.6
--- NOTE | 2024-07-10 15:02 | PC.NURSE ---
Report to the Outpatient Waiting Room, entrance under the green pavilion located off [facility], at time 0830 on date 07/22/24. Planned Procedure Time: 1030.? Time changes happen often and if your time is changed the preop area will call you the afternoon before. - You and your visitor will be asked to self-screen and do not enter if you have any COVID symptoms. Please call surgeon if you need to reschedule. - A mask is optional within the hospital at this time. Patients may have clear liquids (water, carbonated beverages, clear teas, apple juice) until 3 hours prior to surgery with a maximum of 20 ounces. - No food from midnight until time of surgery and no smoking, or chewing tobacco (or any form of nicotine). No chewing gum, candy or mints. Take only the following medications with a SIP of water on the morning of surgery: N/A DO NOT STOP ANY OF YOUR OTHER PRESCRIPTION MEDICATIONS PRIOR TO SURGERY EXCEPT THE FOLLOWING Hold all vitamins and supplements for 3 days per anesthesiologist. Medications to discontinue per physician STOP ALL VITAMINS AND SUPPLIMENTS 3 DAYS PRIOR TO PROCEDURE Date to take last dose 07/18/24 Please no make-up, nail togolese, hairspray, perfume, deodorant, or body powder the day of surgery.? No jewelry (including any body piercings) or valuables the day of surgery, leave them at home.? Please take a shower or bath the night before, or the morning of, surgery with an antibacterial soap.? Wear comfortable, loose fitting clothing.? Children are encouraged to wear pajamas. - Jewelry must be removed prior to entering the operating room.? Rings and piercings that are not removed may be cut off. - The hospital will not accept responsibility for valuables.? - Please leave all valuables, including medications, at home the day of surgery. If you are going home after surgery, a licensed screw driver operator must drive you home.? - NO public transportation without another adult if you receive anesthesia. - We recommend that an adult stay with you for 24 hours following discharge. - We also recommend that you do not drive, make important decision, drink alcoholic beverages, or take any drugs that were not prescribed by your health care provider for at least 24 hours after your discharge time. Follow any additional instructions given to you from your surgeon. Telephone instructions given to SCOTT SARMIENTO and asked if any additional questions and then verbalized understanding. Patient advised to call surgeon office or pre surgery nurse liaison [phone] if any additional questions.
[2024-07-22] VITALS (11 sets, daily range): BP systolic 106–174; BP diastolic 62–83; PULSE 61–89; RESP 14–20; TEMP 36.2–36.6; O2SAT 91–99; BMI 32.0
--- OUTSIDE RECORDS SUMMARY | 2024-07-22 03:29 | XMS_ITS | Clinical Summary ---
Author Organization [facility] Address [address] [place] [address] Care Team Providers Care Painter Helper Sign Name Role Phone Galindo Olivier MD Primary Care Provider [phone] Source Comments [facility] [employer],non-owned Affiliates and Associated Physician Practices is amultiple site organization consisting of ambulatory clinics and hospital sitesin [place], [place], [place] and [place]. This disclosure is being madepursuant to the Care Everywhere program and may not contain all information available regarding this patient. Last updated 17.[facility] [employer] Medications * Be aware that medications may [...] complete this topic Insurance [employer] Care Teams Painter Helper Sign Relationship Specialty Start Date End Date Galindo Olivier MD [address] [place] [address] PCP - General Family Medicine 09/13/17
--- OUTSIDE RECORDS SUMMARY | 2024-07-22 03:29 | XMS_ITS | Encounter Summary ---
Author Organization [facility] Address [address] [place] [id number] Care Team Providers Care Abatement Worker Name Role Phone Galindo Olivier MD Primary Care Provider [phone] Encounter Details Date Type Department Care Team (Late st Contact Info) Description 02/25/[address] [facility] [address] [place] [address] Nena Solares PA-C [address] [place] [address] Social History Tobacco Use Types Packs/Day Years Used Date Smoking Tobacco: Former Smokeless Tobacco: Never Comments:Pt not going to sta rt smoking again. Alcohol Use Standard Drinks/Week Comments Not Currently 0 (1 standard drink = 0.6 oz pur e alcohol) no PHQ-2 Answer Date Recorded Patient Health Questionnaire-2 Score 0 05/17/2023 Comments No Sex and Gender Information Value Date Recorded Sex Assigned at Female 03/05/2024 7:34 AM BEATER ENGINEER HELPER Legal Sex Female 9:16 PM CDT Gender Identity Not on file Sexual Orientation Not on file documented as of this encounter Plan of Treatment Not on file documented as of this encounter Visit Diagnoses Not on filedocumented in this encounter Additional Health Concerns Assessment Noted Time PHQ-9 Depression Total Score: 0 04/11/19 24 3:29 PM BEATER ENGINEER HELPER documented as of this encounter Care Teams Abatement Worker Relationship Specialty Start Date End Date Galindo Olivier MD [address] [place] [address] PCP - General FAMILY PRACTICE 02/19/19 documented as of this encounter
--- OUTSIDE RECORDS SUMMARY | 2024-07-22 03:29 | XMS_ITS | Encounter Summary ---
Author Organization [facility] Address [address] [place] [id number] Care Team Providers Care Fire Patroller Name Role Phone Galindo Olivier MD Primary Care Provider [phone] Encounter Details Date Type Department Care Team (Late st Contact Info) Description 09/10/[address] [facility] Conversion [address] [place] [address] , Generic Conversion, Social History Tobacco Use Types Packs/Day Years Used Date Smoking Tobacco: Never Assessed Comments Unknown Sex and Gender Information Value Date Recorded Sex Assigned at Female 03/05/2024 7:34 AM CRUSHER AND BLENDER OPERATOR Legal Sex Female 9:16 PM CDT Gender Identity Not on file Sexual Orientation Not on file documented as of this encounter Plan of Treatment Not on file documented as of this encounter Visit Diagnoses Not on filedocumented in this encounter Additional Health Concerns Infection Onset Date Last Indicated Resolved Time COVID-19 Rule Out 01/06/2020 01/06/2020 01/06/2020 1:51 PM CRUSHER AND BLENDER OPERATOR COVID-19 Rule Out 01/15/2020 01/15/2020 01/19/2020 1:50 PM CRUSHER AND BLENDER OPERATOR COVID-19 Confirmed 01/15/2020 01/15/2020 12:34 AM CRUSHER AND BLENDER OPERATOR COVID-19 Rule Out 01/18/2021 01/18/2021 01/18/2021 4:12 PM CRUSHER AND BLENDER OPERATOR COVID-19 Rule Out 02/20/2023 02/20/2023 02/20/2023 10:44 AM CRUSHER AND BLENDER OPERATOR documented as of this encounter Care Teams Fire Patroller Relationship Specialty Start Date End Date Galindo Olivier MD [address] [place] [address] PCP - General FAMILY PRACTICE 02/19/19 documented as of this encounter
--- OUTSIDE RECORDS SUMMARY | 2024-07-22 03:29 | XMS_ITS | Data Portability ---
Author Organization [place] - [facility], EFF_Historical Results Address [address] [place] [address] Assessment Encounter Date Assessment Date Assessment LastModified [...] 1. You are scheduled for surgery at [facility] on 03/10/2024 at Time: 1330. Pre-register at [...] the surgery. Some facilities will provide special spinning frame cleaner. 9. Pelvic rest after surgery for [...] ASCUS +HRHPV6/1 09/28 LGSIL 2023 024 CHRISTIANNE [facility], [address] [place], [address], 12/28/2023 10:34:33 Referral None recorded. Procedures None recorded. Surgeries total hysterect mague, laparosco pic, with bilateral salpingec jimmy (SURG) 2023 025 [email or web address] Not available 03/13/2024 08:38:07 Imaging None recorded. Medication Orders None recorded. Patient TargetsNo targets recorded. Patient Instructions Encounter Date Encounter Id Patient Instructions Last Modified By Organization Details Last Modified Time 12/28/2023 [id number] pt plans mammogram in 2024 Keep pre-op appt 02-25-24 [email or web address] Not available 12/28/2023 10:34:46 Reason for Referral None Reported. Results Created Date Observation Date Name Description Value Unit Range Abnormal Flag Note LastModifiedBy Organization Detail LastModifiedTime 12/03/1912/06/2023 TISSU E PATHO LOGY clinical information LSIL, +HR HPV 09/[address] [facility] [address] [place], [address], 12/06/2023 15:18:45 12/03/1912/06/2023 TISSU E PATHO LOGY pathologist Rene Greer M.D., Board Certi fied in Anato inocencia Patho logy and Clini namrata Patho logy. (annie hicks) Not Available [facility] [address] [place], [address], 12/06/2023 15:18:45 12/03/1912/06/2023 TISSU E PATHO LOGY report notes Cyto/ Histo corre latio n canno t be perfo rmed since the abnor mal cells in the cervi namrata cytol ogy speci men(s ) were squam ous and the tissu e is prima rily gland ular. Not Available [facility] [address] [place], [address], 12/06/2023 15:18:45 12/03/1912/06/2023 TISSU E PATHO LOGY A source Endoc ervix , curet tage Not Available [facility] [address] [address], [place], [address], 12/06/2023 15:18:45 12/03/1912/06/2023 TISSU E PATHO LOGY [...] [facility] [place] [address] [place] [address], [place] [address] Labor atory Direc tor: MARGA Yan MD Not Available [facility] [address] [address], [place], [address], 12/06/2023 15:18:45 12/03/1912/06/2023 TISSU E PATHO LOGY A diagnosis Benig n endoc ervic al tissu e with mucus and infla mmato ry debri s. No featu res diagn ostic of dyspl daljit or malig krysta . Not Available [facility] [address] [place], [address], 12/06/2023 15:18:45 12/13/1912/14/2023 URINA LYSIS , COMPL ETE color DARK YELLOW yellow normal Not Available [address], [address], 12/14/2023 08:53:02 12/13/1912/14/2023 URINA LYSIS , COMPL ETE appearance CLEAR clear normal Not Available [address], [address], 12/14/2023 08:53:02 12/13/1912/14/2023 URINA LYSIS , COMPL ETE specific gravity 1.025 1.001- 1.035 normal Not Available [address], [address], 12/14/2023 08:53:02 12/13/19 24 12/14/2023 URINA LYSIS , COMPL ETE pH < OR = 5.0 5.0-8. 0 normal Not Available [address], [address], 12/14/2023 08:53:02 12/13/19 24 12/14/2023 URINA LYSIS , COMPL ETE glucose NEGATI VE negati ve normal Not Available [address], [address], 12/14/2023 08:53:02 12/13/19 24 12/14/2023 URINA LYSIS , COMPL ETE bilirubin NEGATI VE negati ve normal Not Available [address], [address], 12/14/2023 08:53:02 12/13/19 24 12/14/2023 URINA LYSIS , COMPL ETE ketones NEGATI VE negati ve normal Not Available [address], [address], 12/14/2023 08:53:02 12/13/19 24 12/14/2023 URINA LYSIS , COMPL ETE occult blood TRACE negati ve abnormal Not Available [address], [address], 12/14/2023 08:53:02 12/13/19 24 12/14/2023 URINA LYSIS , COMPL ETE protein TRACE negati ve abnormal Not Available [address], [address], 12/14/2023 08:53:02 12/13/19 24 12/14/2023 URINA LYSIS , COMPL ETE nitrite NEGATI VE negati ve normal Not Available [address], [address], 12/14/2023 08:53:02 12/13/19 24 12/14/2023 URINA LYSIS , COMPL ETE leukocyte esterase NEGATI VE negati ve normal Not Available [address], [address], 12/14/2023 08:53:02 12/13/19 24 12/14/2023 URINA LYSIS , COMPL ETE WBC 0-5 /hpf < or = 5 normal Not Available [address], [address], 12/14/2023 08:53:02 12/13/19 24 12/14/2023 URINA LYSIS , COMPL ETE RBC 0-2 /hpf < or = 2 normal Not Available [address], [address], 12/14/2023 08:53:02 12/13/19 24 12/14/2023 URINA LYSIS , COMPL ETE squamous epithelial cells 10-20 /hpf < or = 5 abnormal Not Available [address], [address], 12/14/2023 08:53:02 12/13/19 24 12/14/2023 URINA LYSIS , COMPL ETE bacteria NONE SEEN /hpf none seen normal Not Available [facility] [address], [address], 12/14/2023 08:53:02 12/13/19 24 12/14/2023 URINA LYSIS , COMPL ETE calcium oxalate crystals MODERA TE /hpf none or few abnormal Not Available [facility] [address], [address], 12/14/2023 08:53:02 12/13/19 24 12/14/2023 URINA LYSIS , COMPL ETE hyaline cast 10-20 /lpf none seen abnormal Not Available [facility] [address], [address], 12/14/2023 08:53:02 12/13/19 24 12/14/2023 CULTU RE, URINE , ROUTI NE culture, urine, routine SEE NOTE CULTU RE, URINE , ROUTI NE Micro Numbe r: [id number] Test Statu s: Final Speci men Sourc e: Urine Speci men Quali ty: Adequ ate Resul t: No Growt h Not Available [address], [address], 12/14/2023 20:15:51 03/05/19 25 03/05/2024 HEMAG REGAN WBC 6.94 x10'3 /uL 4.60-9 .10 Not Available [address], [address], 03/05/2024 12:54:41 03/05/19 25 03/05/2024 HEMAG REGAN RBC 5.04 x10'6 /uL 3.90-5 .00 high Not Available [address], [address], 03/05/2024 12:54:41 03/05/19 25 03/05/2024 HEMAG REGAN hemoglobin 14.9 g/dL 11.8-1 4.7 high Not Available [address] [place], [address], 03/05/2024 12:54:41 03/05/19 25 03/05/2024 HEMAG REGAN hematocrit 45.0 % 36.3-4 5.2 Not Available [address], [address], 03/05/2024 12:54:41 03/05/19 25 03/05/2024 HEMAG REGAN MCV 89.3 fL 80.0-9 8.0 Not Available [address], [address], 03/05/2024 12:54:41 03/05/19 25 03/05/2024 HEMAG REGAN MCH 29.6 pg 26.8-3 2.1 Not Available [address], [address], 03/05/2024 12:54:41 03/05/19 25 03/05/2024 HEMAG REGAN MCHC 33.1 g/dL 30.7-3 4.2 Not Available [address], [address], 03/05/2024 12:54:41 03/05/19 25 03/05/2024 HEMAG REGAN RDW 13.7 % 12.0-1 4.8 Not Available [address], [address], 03/05/2024 12:54:41 03/05/19 25 03/05/2024 HEMAG REGAN platelet count 341 x10'3 /uL 145-35 8 Not Available [address], [address], 03/05/2024 12:54:41 03/05/19 25 03/05/2024 HEMAG REGAN MPV 10.2 fL 8.8-12 .3 Not Available [address], [address], 03/05/2024 12:54:41 03/05/1903/05/2024 BASIC METAB OLIC PANEL sodium 137 mmol/ L 136-14 5 Not Available [address], [address], 03/05/2024 13:14:16 03/05/1903/05/2024 BASIC METAB OLIC PANEL potassium 3.8 mmol/ L 3.5-5. 1 Not Available [address], [address], 03/05/2024 13:14:16 03/05/1903/05/2024 BASIC METAB OLIC PANEL chloride 105 mmol/ L 97-115 Not Available [address], [address], 03/05/2024 13:14:16 03/05/1903/05/2024 BASIC METAB OLIC PANEL total CO2 26.0 mmol/ L 21.0-3 2.0 Not Available [address], [address], 03/05/2024 13:14:16 03/05/1903/05/2024 BASIC METAB OLIC PANEL glucose 89 mg/dL 74-106 Not Available [address], [address], 03/05/2024 13:14:16 03/05/1903/05/2024 BASIC METAB OLIC PANEL BUN 12 mg/dL 7-18 Not Available [address], [address], 03/05/2024 13:14:16 03/05/1903/05/2024 BASIC METAB OLIC PANEL creatinine 0.77 mg/dL 0.55-1 .02 Not Available [address], [address], 03/05/2024 13:14:16 03/05/19 25 03/05/2024 BASIC METAB OLIC PANEL calcium 9.3 mg/dL 8.5-[address] [facility] [address] [place], [address], 03/05/2024 13:14:16 03/05/19 25 03/05/2024 BASIC METAB OLIC PANEL anion gap 6.0 mmol/ L 2.0-[address] [facility] [address] [place], [address], 03/05/2024 13:14:16 03/05/19 25 03/05/2024 BASIC METAB OLIC PANEL osmolality calc 283 mOsm/ kg REFER ENCE RANGE NOT ESTAB LISHE D Not Available [facility] [address] [place], [address], 03/05/2024 13:14:16 03/05/19 25 03/05/2024 BASIC METAB OLIC PANEL est GFR >90 mL/mi n/1.7 3_M2 >[address] [facility] [address] [place], [address], 03/05/2024 13:14:16 03/05/19 25 03/05/2024 BASIC METAB [...] OR HIGH: >89 ml/mi n/1.7 3 m2 G2,NV LDLY DECRE ASED: 60-89 ml/mi n/1.7 3 m2 G3A,M ILDLY TO MODER ATELY DECRE ASED: 45-59 ml/mi n/1.7 3 m2 G3B,M ODERA TELY TO SEVER ITALO DECRE ASED: 30-44 ml/mi n/1.7 3 m2 G4,SE VEREL Y DECRE ASED: 15-29 ml/mi n/1.7 3 m2 G5,KI DNEY FAILU RE: <15 ml/mi n/1.7 3 m2 Not Available [address], [address], 03/05/2024 13:14:16 03/05/19 25 03/05/2024 TYPE AND SCREE N ABO/Rh(D) B POSITI VE Not Available [address], [address], 03/05/2024 14:27:11 03/05/19 25 03/05/2024 TYPE AND SCREE N antibody screen NEGATI VE Not Available [address], [address], 03/05/2024 14:27:11 03/05/19 25 03/05/2024 TYPE AND SCREE N xm expiration 2024,2 359 Not Available [facility] [address] [place], [address], 03/05/2024 14:27:11 03/10/19 25 03/10/2024 PREG TEST, URINE preg test, urine NEGATI VE Not Available [address], [address], 03/10/2024 16:05:34 03/10/19 25 03/14/2024 S SURGI NAMRATA PATHO LOGY path report [facility] Hospi toni Depar tment of Labor atory Medic ine [address] [facility] nter Mikee [facility] [place] [place] [address] Telep christian: [phone], exten [place] [address] 07 Patho logy Repor t Surgi namrata Patho logy Repor t Name: FRANCK MONTOYA Speci men #: [id number] Age: [birth year] (Age: 53) Locat ion: [facility] IF Sex: F Proce dure Date: 025 Hospi toni #: [id number] Date Recei garcia: 2/5/2 025 Date Repor hallie: 025 Provi sadaf: RUBIO Catherine MD [facility] e: Uteru s, cervi x, bilat [...] ng from 0.2 to 0.8 cm in [facility] [place]. There are no areas of softe [...] ng from 0.1 to 0.3 cm in [facility] [place] that conta in straw -colo red [...] appli cable ) was perfo rmed at [facility], [address] [facility], [place] [address] . This case was inter prete d and beth d out at [facility] [address] [place] [address] . Emmy sherlynon christian y Beth d Out DOROTHEA Jansen MD Not Available [address], [address], 03/14/2024 11:38:19 12/13/19 24 04/27/2022 MAMMO , scree rachel, bilat eral No observ ation record ed. [facility] [address] [place], [address], 12/13/2023 11:53:41 12/13/19 24 12/13/2023 US, pelvi s No observ ation record ed. [facility] [address] [address], [place], [address], 12/13/2023 12:48:22 04/01/19 25 04/14/2020 imagi ng/di [...] for a detail ed fax or copy. [facility] y's Mammog cynthia at [facility] RECORDING STUDIO INTERN [address] [place] [address] Examin ation: BILATE RAL SCREEN ING MAMMOG REGAN Exam Date: 025 2:39 PM Access ion: [id number] Clinic al Indica tion: 54 years of age female routin e screen ing. No person al or family histor y of breast cancer . Bilate ral breast implan ts. Compar karli: Mammog chaparro dating back to 08/13/19 11. Techni que: Digita l CC and MLO views. Tomosy nthesi s imagin g acquis ition. Study read with the assist ance of a [employer] Dem[employer] er-aid ed detect ion system . Tissue [...] Gregg Brito DO, 025 3:[email or web address] [facility] [address] [place], [address], 06/25/2024 09:03:15 Result Notes None recorded. Problems Name Problem SNOMED Code Status Onset Date Resolution Date Notes Provider Name and Address Organization Details Recorded Time History of abnormal cervical Papanicolaou smear 488193789 Active 2023 7 LSIL, CxBx-n eg, Ecc-ne [...] ECC: Neg Ana caicedo, [place] - [facility] 4 13:03:11 Endometriosis (clinical) 671682735 Active 2023 Ana Sheldon null, [place] [facility] 4 13:03:20 Neuropathy 751480229 Active 2023 Ana caicedo, [place] [facility] 4 13:03:33 Exposure to mold Active 2021 Say Cheung null, [place] [facility] 5 09:38:36 History of hysterectomy 165010486 Active 2024 Say Cheung null, [place] [facility] 5 09:38:36 Insomnia 128931591 Active 2012 Say Cheung null, [place] [facility] 5 09:38:36 Dyspnea 413301210 Active 2021 Say Cheung null, [place] [facility] 5 09:38:36 Peripheral nerve disease 460708033 Active 2013 Say Cheung null, [place] [facility] 5 09:38:36 History of bilateral salpingo-ooph orectomy 979687051 Active 2024 Say Cheung null, [place] [facility] 5 09:38:36 Dysplasia of cervix 60567696 Active 2024 Say Cheung null, [place] [facility] 09:38:36 History of total hysterectomy with bilateral salpingo-ooph orectomy 743447323 Active 2024 ANDREI PALACIOS PA-C [address] [place] [address], [address] , Located within [facility] 13:51:04 Problem Notes None recorded. Procedures Surgical History Date Name Laterality Status Provider Name and Address Organization Details Recorded Time 06/25/19 25 Date of Last Mammogram completed Anai Sales [facility] 06/25/2024 09:01:46 03/10/19 25 Hysterectomy and BSO completed Jeanna Eaton [facility] 03/11/2024 12:02:21 12/03/19 24 EFF Colposcopy - Cervix completed CHERRY BLACKWELL MD [address] [place] [address], [address], Located within [facility] 12/03/2023 12:34:47 07/24/19 24 Date of Last Pap Smear completed Anai Sales [facility] 07/31/2023 18:00:16 10/07/19 23 LEEP completed Anai [facility] 07/19/2023 11:00:48 07/15/19 16 Date of Last Colonoscopy completed Anaiteresita Lee [facility] 07/19/2023 10:51:54 07/15/19 16 Colonoscopy completed Anai Lee [facility] 07/19/2023 11:00:13 07/15/19 16 Laparoscopy completed Ana Sheldon [facility] 12/26/2023 13:07:28 02/07/19 12 Cholecystectomy completed Anai Lee [facility] 07/19/2023 11:00:00 Colposcopy completed Ana Sheldon [facility] 12/26/2023 13:05:33 cryotherapy completed Ana Sheldon [facility] 12/26/2023 13:06:00 Imaging Results None recorded. Procedure Notes None recorded. Medical Equipment None Reported. Allergies Allergen ID Allergen Name Allergen Category Reaction Reaction Severity Criticality Documentation Date Start Date Code Code System Note Provider Name and Address Organization Details Recorded Time 79399 ethinyl estradiol / levonorge strel medicatio n Not available Not available Not available 09/27/2023 94166 8 RxNorm Say Jonatan null, [place] - Together [facility] 10:44:13 [address]244 Augmentin medicatio n Not available Not available Not available 02/25/2024 21780 2 RxNorm Say Jonatan null, [place] - [place] [facility] 5 10:44:29 Medications Name Sig [...] Updated DateTime 02/25/2024 167.64 cm 27.8 kg/m2 31019.89 g 128 mm[Hg] 78 mm[Hg] Say Cheung [facility] 5 10:45:35 Date Recorded Body height Body mass index (BMI) Body weight Systolic blood pressure Diastolic blood pressure Provider Name and Address Organization Details Last Updated DateTime 03/24/2024 167.64 cm 27.3 kg/m2 95767.11 g 128 mm[Hg] 80 mm[Hg] Say Cheung [facility] 5 12:35:44 Date Recorded Body height Body mass index (BMI) Body weight Systolic blood pressure Diastolic blood pressure Provider Name and Address Organization Details Last Updated DateTime 04/21/2024 167.64 cm 27.8 kg/m2 90543.89 g 128 mm[Hg] 80 mm[Hg] Say Cheung [facility] 5 11:55:49 Date Recorded Body height Body mass index (BMI) Body weight Systolic blood pressure Diastolic blood pressure Provider Name and Address Organization Details Last Updated DateTime 12/18/2023 167.64 cm 26.8 kg/m2 35905.33 g 132 mm[Hg] 84 mm[Hg] Say Cheung [facility] 4 14:53:45 Date Recorded Body height Body mass index (BMI) Body weight Systolic blood pressure Diastolic blood pressure Provider Name and Address Organization Details Last Updated DateTime 12/28/2023 167.64 cm 27.1 kg/m2 31275.52 g 126 mm[Hg] 62 mm[Hg] Vega Dai [facility] 4 10:02:57 Social History Question Answer Notes LastModified by Organizat ion Details LastModified Time Tobacco Smoking Status Never Smoker Anai Lee [facility], [place] - [facility] 07/24/2023 10:07:35 What Is Your Level Of Caffeine Consumption? Occasional [email or web address] Information not available 07/24/2023 What Type Of Diet Are You Following? REGULAR [email or web address] Information not available 09/27/2023 Have There Been Any Changes To Your Family Or Social Situation? Yes [email or web address] Information not available 09/27/2023 What Is The Highest Level Of School You Have Completed Or The Highest Degree You Have Received? Associate Degree [email or web address] Information not available 09/27/2023 How Do You Identify Yourself? Heterosexual [email or web address] Information not available 09/27/2023 What Is Your Ethnicity? [email or web address] Information not available 12/13/2023 What Was The Date Of Your Most Recent Tobacco Screening? 02/25/2024 [email or web address] Information not available 02/25/2024 What Is Your Relationship Status? [email or web address] Information not available 09/27/2023 Are There Any Smokers In Your House? No [email or web address] Information not available 09/27/2023 How Much Tobacco Do You Smoke? No [email or web address] Information not available 07/24/2023 Sex: Female Functional Status Question Answer Note LastModified by Organizat ion Details LastModified Time Do you use any illicit or recreational drugs? No [email or web address] Information not available 07/24/2023 Do you or have you ever used any other forms of tobacco or nicotine? No [email or web address] Information not available 07/24/2023 What is your level of alcohol consumption? Occasional Information not available 07/24/2023 Are you currently employed? No [email or web address] Information not available 07/24/2023 What is your exercise level? Occasional Information not available 09/27/2023 Mental Status None recorded. Family History Relationship Description Onset Age of this Age Resolved Age Notes LastModified by Organization Details LastModified Time Maternal Grandfather Family history of Congenital heart disease [email or web address] Not available 2023 10:53:38 Maternal Grandmother Family history of Congenital heart disease Not available 2023 10:53:38 Maternal Grandmother Family history of diabetes mellitus Type II [email or web address] Not available 07/19/2023 10:55:24 Maternal Grandmother Family history of osteoporosis [email or web address] Not available 10:55:42 Mother Family history of Hypertension [email or web address] Not available 10:53:50 Mother Family history of Thyroid disorder [email or web address] Not available 2023 10:55:56 Paternal Grandmother Family history of osteoporosis [email or web address] Not available 10:55:42 Medical History Condition Response Allergies (Food, seasonal, environmental ) Y Other N Thyroid Disease N Cancer Endometrial N Blood Transfusion N Cancer Breast N Migraines N Lung Disease N Depression N GI Problems N Hematologic (Blood) Disorder N Eating Disorder N Gestational Diabetes N Anemia N Psychiatric Disorder N Thrombophilia N Cancer Colon N Diabetes N Anxiety Disorder N Cancer Other N Arthritis N Cancer Uterine N Acid Reflux (GERD) N Stroke N Asthma N Polycystic Ovary Syndrome (PCOS) N Endometriosis Y High Cholesterol N Neurologic Disorder N Defects N Liver Disease N Heart Disease N Cancer Ovarian N Fibromyalgia N Deep Vein Thrombosis (DVT) or Pulmonary Embolism (PE) N Hypertension N Osteoporosis N Kidney Disease N Autoimmune Disease N Gynecological History Statement/Question Response Abnormal Pap [...] virus, quadrivalent, preservative 0 completed Say Cheung [facility] [place] [facility] 03/20/2024 09:38:36 Past Encounters Encounter ID Performer Location Encounter Start Date Encounter Closed Date Diagnosis/Indication Diagnosis SNOMED-CT Code Diagnosis ICD10 Code Diagnosis Note [id number] TARIK BEAUCHAMP MD [facility] [address] [place] [address] 07/24/2023 09:54:20 07/24/2023 11:59:28 Screening for malignant neoplasm of cervix 072403933 Z12.4 Menopausal syndrome 1237 19920 N95.9 Obesity 649028539 E66.9 [id number] MD DENIS HAYS_Robert menard [address] [place] [address] 09/27/2023 12:04:23 09/27/2023 12:54:41 Abnormal cervical Papanicolaou smear 275899411 R87.619 Z11.3 [id number] MD DENIS HAYS_Robert menard [address] [place] [address] 12/03/2023 11:50:11 12/03/2023 12:39:56 Low grade squamous intraepithelial lesion on cervical Papanicolaou smear 1253848046 9105 R87.612 [id number] MD Ericka HAYS [address] [place] [address] 12/13/2023 09:24:13 12/13/2023 16:46:09 Chronic pelvic pain of female 468685253 R10.2 h/o endometrio sis.Tyleno l and motrin for discomfort .Phenergan for pain/nause a.US essentiall y normal. Endo 1.9mm. Left 30mm simple cyst.keep appt with BRITNI to discuss surgical options. Nausea and vomiting 1692 1999 R11.2 May just have a virus. Push fluids. Rest. Cyst of left ovary 59535 95655 1269489 N83.202 simple around 3 cm. [id number] MD Ericka HAYS [address] [place] [id number] 12/18/2023 14:38:58 12/18/2023 15:26:21 Dysplasia of cervix 50350867 N87.9 [id number] MD Ericka HAYS [address] [place] [address] 12/28/2023 09:54:33 12/28/2023 11:00:15 Screening for malignant neoplasm of cervix 016836142 Z12.4 [id number] CHERRY DUST, MD [facility] [address] [address] 02/25/2024 10:40:50 02/25/2024 12:00:42 History of dysplasia of cervix 901605713 Z87.410 Pre-surger y evaluation 346876318 Z01.818 History of loop electrosurgical excision procedure 4413287431 9102 Z98.890 [id number] MD DENIS HAYS_[address] [address] 03/24/2024 12:19:45 03/24/2024 12:49:22 History of total hysterectomy with bilateral salpingo-oophorectomy 738723491 Z90.79 s/p TLH/BSO/cy sto [id number] MD [facility]IS [facility] [address] 04/21/2024 11:10:03 04/21/2024 12:28:06 Postoperative care 113794222 Z48.89 Health Concerns Section Related Observation LastModified by Organization Detai ls LastModified Time None Recorded Concern Status LastModified by Organization Details LastModified Time None Recorded Advance Directives Directive None Recorded Payers Insurance Date Sequence Insurance Name Policy Number Policy Aranda Covered Member ID Aranda Member ID Guarantor Name 04/18/2024 1 [place] [id number] Franck Wallace [id number] Franck Browne Notes Date Note Type Note Provider Name and Address Organization Details Recorded Time 12/18/2023 text/html Patient comes in today for follow-up visit to review ultrasound. The patient has stayed the same since last visit. The ultrasound was reviewed in detail with her. Treatment and follow up were discussed. CHERRY BLACKWELL MD [address] [place], [address], [facility] 12/18/2023 15:25:29 12/28/2023 text/html Repeat Pap SmearReported bypatient.Onset/George g:last pap smear performed: (09/27/2023); last colposcopy [...] a repeat pap. MASSIEL GAMING APN [address] [place], [address], Located within [facility] 12/28/2023 10:35:32 02/25/2024 text/html This patient pre sents for a preoperative visit. She is scheduled for a TLH/BSO Indication: dysplasia of cervix Currently using any meds for [...] understanding of the discussion ANDREI PALACIOS PA-C [address] [place], [address], Located within [facility] 02/25/2024 11:22:49 03/24/2024 text/html Post-OpReported bypatient.Shahid/George bear:date of surgery: (03/10/2024) Quality:procedure: (Total laparoscopic hysterectomy, [...] feels great. No concerns. ANDREI PALACIOS PA-C [address] [place], [address], Located within [facility] 03/24/2024 13:53:06 04/21/2024 text/html Post-OpReported bypatient.Onset/George g:date [...] edema/pain; no dysuria/urinary symptoms CHERRY BLACKWELL MD [address] [place], [address], Located within [facility] 04/21/2024 12:27:59 OBGyn Episode Ob Episode Information Episode Created Date Number of Fetuses Patient Bloodtype Patient rh Status Prepregnancy Weight lbs Domestic Partner Domestic Partner Phone Father Name Plug Stitcher Status 07/19/19 24 1 CLOSED Fetus Data First Name Last Name Admitted to NICU Weight (g) Sex Living Outcome Pediatric Complications Fetus ID Race Codes Race Delivery Type 3118.44 5 M Full Term [id number] Vaginal Venu Calculation Initial Venu Date Initial [...] Domestic Partner Domestic Partner Phone Father Name Plug Stitcher Status 07/19/19 24 1 CLOSED Fetus Data First Name Last Name Admitted to NICU Weight (g) Sex Living Outcome Pediatric Complications Fetus ID Race Codes Race Delivery Type , Spontane ous [id number] Venu Calculation Initial Venu Date Initial Exam [...]
--- OUTSIDE RECORDS SUMMARY | 2024-07-22 03:29 | XMS_ITS | Clinical Summary ---
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 S/P laparoscopic hysterectomy 03/10/2024 S/P BSO (bilateral salpingo-oophorectomy) 2024 Mold exposure 01/20/2022 Dyspnea 01/20/2022 Peripheral neuropathy 12/02/2013 Insomnia 02/12/2012 Encounters Date Type Department Care Team Description 06/24/2024 2:39 PM CDT - 06/24/2024 11:59 PM CDT Hospital Encounter [facility] [place] 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 [address] [place] [address] Cherry Blackwell MD Discharge Disposition: Home or Self Care (Routine Discharge) 06/24/2024 Travel from Last 3 Months Immunizations Immunization Administration Dates Next Due Fluzone 6 Months+ (5.0 mL Multi Dose Vial) 11/04 Family History Medical History Relation Comments No Known Problems Father No Known Problems Mother Relation Status Comments Father Alive Mother Alive Social History Tobacco Use Types Packs/Day Years Used Date Smoking Tobacco: Former Smokeless Tobacco: Never Tobacco Cessation:Counseling Given: Not Answered Comments:Pt not going to start smoking again. Alcohol Use Standard Drinks/Week Comments Not Currently 0 (1 standard drink = 0.6 oz pur e alcohol) no PHQ-2 Answer Date Recorded Patient Health Questionnaire-2 Score 0 04/01/2024 Comments No Sex and Gender Information Value Date Recorded Sex Assigned at Female 03/05/2024 7:34 AM ONLINE PRODUCER Legal Sex Female 9:16 PM CDT Gender Identity Not on file Sexual Orientation Not on file Last Filed Vital Signs Vital Sign Reading Time Taken Comments Blood Pressure 134/84 04/01/2024 10:17 AM ONLINE PRODUCER Pulse 63 04/01/2024 10:17 AM ONLINE PRODUCER Temperature 37.2 C (98.9 F) 04/01/2024 10:17 AM ONLINE PRODUCER Respiratory Rate 18 04/01/2024 10:17 AM ONLINE PRODUCER Oxygen Saturation 95% 04/01/2024 10:17 AM ONLINE PRODUCER Inhaled Oxygen Concentration - - Weight 77.4 kg (170 lb 9.6 oz) 04/01/2024 10:17 AM ONLINE PRODUCER Height 157.5 cm (5' 2) 04/01/2024 10:17 AM ONLINE PRODUCER Body Mass Index 31.2 04/01/2024 10:17 AM ONLINE PRODUCER Plan of Treatment Health Maintenance Due Date Last Done Comments Cervical Cancer Screening Pap Smear (Age 30 to 64) Every 3 Years 1968 Colorectal Cancer Screening Colonoscopy (10 Years) 1968 Annual Physical 06/09/1971 Hepatitis C 1986 DTaP, Tdap and Td Vaccines (1 - Tdap) 06/09/1987 Hepatitis B Vaccines (1 of 3 - 19+ 3-dose series) 06/09/1987 Cervical Cancer Screening Pap with HPV Testing (Age 30 to 64) Every 5 Years 1998 Cervical Cancer Screening with HPV 1998 Pneumococcal Vaccine: 50+ Years (1 of 1 - PCV) 2018 Zoster Vaccines (1 of 2) 2018 COVID-19 Vaccine (3 - season) 2023 11/05/2020, 10/15/2020 Mammogram Screening 06/24/2026 06/24/2024, 04/27/2022, 04/18/2021, Additional history exists PHQ-2 (Physician [place]) Completed 04/01/2024 Meningococcal B Vaccine Aged Out No l onger eligible based on patient's age to complete this topic Meningococcal Vaccine Aged Out No kayy david eligible based on patient's age to complete this topic RSV Immunizations Under 20 Months Aged Out No longer eligible based on patient's age to complete this topic Medical Devices Implanted Type Area Medical Director Of Hospice Device Identifier Shelf Expiration Date Model / Serial / Lot Breast Breast Bilateral: Breast Procedures Procedure Name Priority Date/Time Associated Diagnosis Comments MG SCREENING IMPLANT W DANK ANTON DIGI Routine 06/24/2024 2:40 PM CDT Encounter for screening mammogram for malignant neoplasm of breast from Last 3 Months Results * MG SCREENING IMPLANT W DANK ANTON DIGI (06/24/2024 2:40 PM CDT) Anatomical Region Laterality Modality Breast Bilateral Mammography 06/24/2024 3:4 1 PM CDT Impressions 06/24/2024 3:47 PM CDT IMPRESSION: No interval features to suggest malignancy. In the absence of clinical symptoms, return for annual screening due in one year. Recommendation: Routine Screening Bilateral. Assessment: ACR BI-RADS 2 - BENIGN FINDING(S) Ordered By: CHERRY BLACKWELL Interpreted By: Gregg Brito DO, 06/24/2024 3:41 PM Narrative 06/24/2024 3:47 PM CDT [facility] [place] REWORK MACHINE OPERATOR [address] [place] [id number] Examination: BILATERAL SCREENING MAMMOGRAM Exam Date: 06/24/2024 2:39 PM Clinical Indication: 54 years of age female routine screening. No personal or family history of breast cancer. Bilateral breast implants. Comparison: Mammograms dating back to 08/12/2010. Technique: Digital CC and MLO views. Tomosynthesis imaging acquisition. Study read with the assistance of a computer-aided detection system. Tissue density:There are scattered areas of fibroglandular density. Findings: Stable fibroglandular pattern bilaterally. Benign calcifications. Stable small benign nodules within the upper-outer breast bilaterally. Benign axillary lymph nodes. No suspicious masses, malignant appearing calcifications, skin thickening or other abnormalities are present. No findings of concern with computer-assisted software. us Cherry Blackwell MD MAMMO Final Result from Last 3 Months Insurance [facility] Advance Directives Documents on File Type Date Recorded Patient Bean Viner Expl anation Advance Directives and Living Will 10/20/2002 12:00 AM ADVANCE DIRECTIVE Advance Directives and Living Will 10/20/2002 12:00 AM ADVANCE DIRECTIVE * Full Code (Latest Code Status on File) Date Activated Date Inactivated Comments 03/10/2024 4:18 PM 03/11/2024 12:46 PM Care Teams Conductor Yard Relationship Specialty Start Date End Date Galindo Olivier MD [address] [place] [address] PCP - General FAMILY PRACTICE 02/19/19
[2024-07-22] MEDS: LACTATED RINGERS 1,000 ML 30 ML IV CONT ×2 (09:00→13:56)
--- NOTE | 2024-07-22 09:14 | WPDANESEPPF ---
Anes - Initial Pre Proc Eval Procedure: Operation Date: 07/22/24 10:30 Proposed Procedures p Bilateral Breast Implant Removal - Kwaku Caban MD s Bilateral Breast Mastopexy - Kwaku Caban MD Date/Time: 07/22/24 09:14 Surgeon: Kwaku Caban MD Pre Op Diagnosis: Hx of Beast Aug, Breast Ptosis Patient Data Age: 54 Gender: F Height: 1.57 m Weight: 79.4 kg Last Vital Signs Temp 36.6 C 07/22/24 08:52 Pulse 67 07/22/24 08:52 Resp 14 07/22/24 08:52 BP 174/83 H 07/22/24 09:13 Pulse Ox 99 07/22/24 08:52 Allergies Allergy/AdvReac Type Severity Reaction Status Date / Time amoxicillin (From Augmentin) Allergy Rash Verified 07/22/24 08:42 clavulanic acid (From Allergy Rash Verified 07/22/24 08:42 Augmentin) Home Medications ?Medication ?Instructions ?Recorded ?Confirmed ?Type calcium carbonate-vitamin D2 1 tablet PO DAILY 07/10/24 07/22/24 History multivitamin (Daily Multi-Vitamin 1 tablet PO DAILY 07/10/24 07/22/24 History tablet) Laboratory Tests 07/22/24 08:10 Cotinine Pending Patient hx anesthesia problems: none Family hx anesthesia problems: none Results Review: All pre-operative results and documents have been reviewed as part of the pre-operative evaluation. [facility] Past Medical History Medical History (Updated 07/22/24 @ 09:14 by Delfino Keyes MD) Obesity Surgical History Surgical History (Updated 07/22/24 @ 09:14 by Delfino Keyes MD) H/O: hysterectomy Social History Social History Smoking status: Never smoker Alcohol intake: never Living arrangements: with family Spiritual care concerns: No Anes - Eval Final PreProcedure Day of Procedure 07/22/24 09:14 Patient weight: obese Heart: regular rate and rhythm Lungs: clear to auscultation Airway: Mallampati scale class III and special considerations poor opening Neurological: alert and oriented Last oral intake: >/= 8 hours ASA classification: II Emergent: no Anesthetic plan: proceed Anesthesia type and monitoring: general LMA and standard monitoring Results Review: All pre-operative results and documents have been reviewed as part of the pre-operative evaluation. Informed Consent: The patient's anesthetic plan and its attendant risks and benefits were discussed with the patient/family/POA. Questions were solicited and answers provided to the satisfaction of the patient/family/POA.
[2024-07-22] MEDS: TRANEXAMIC ACID 1,000MG/ISO100 1,000 MG/100 ML BAG 200 MG IVPB (09:58)
[2024-07-22] MEDS: SCOPOLAMINE 1 MG PATCH 1 PATCH TRANSDERM (09:58)
--- NOTE | 2024-07-22 10:40 | WPDHPUPDATE1 ---
History and Physical Update Update Date/Time: 07/22/24 10:40 History and Physical has been reviewed, including an updated exam of the patient. There are NO changes in the patient's condition. Risks, benefits, and alternatives have been discussed and questions answered. Patient agrees to proceed with procedure.
[2024-07-22 10:46] LABS: Urine Cotinine NEGATIVE
--- NOTE | 2024-07-22 11:00 | W.PM.PROC2 ---
Procedure Note - Detailed Date of Procedure 07/22/24 Pre-op Diagnosis Hx of Beast Aug, Breast Ptosis Post-op Diagnosis Same Procedure Performed Bilateral breast implant removal with Mastopexy Surgeon Kwaku Caban MD Anesthesia General Findings Previous implants bilateral textured intact Inverted T Superior Pedicle Description of Procedure She is here today for the above. Previously and again today the risks, benefits, alternatives were discussed in extensive detail. I wanted her to be very realistic about the risks involved as well as expectations. We discussed aftercare and what to monitor for. Made sure answered all of her questions to her satisfaction today and consent was obtained. Marked in the preoperative holding area with their verification. The patient was taken to the operating room placed supine on the operating table. Anesthesia was provided by anesthesiology. A surgical time-out was taken. She was prepped and draped in a standard sterile fashion. 11 blade used to make a stab incision. Tumescent was utilized laterally to provide field block. A 10 blade used to make an incision just superior to the inframammary fold leaving a cusp of de-epithelized tissue at the t junction. Dissection was continued until the capsule was identified. I elevated just superficial to the capsule and removed the majority of that capsule. Implants removed with findings as above. I copiously irrigated with 3 liters of saline solution. I tailor tacked the breast into position. Placed her in a sitting position. Verified the nipple-areolar location based on preoperative planning as well as intraoperative observations and measurements in full agreement. This was limited by previous surgical scar locations. Suction lipectomy was completed laterally with a 4mm nadia cannula. This was based on preoperative planning, intraoperative observation, and rolling pinch which was in full agreement. She was placed supine. I de-epithelialized the pedicle. I then removed the inferior central portion of the breast need making sure the implant was well protected. I elevated medial and lateral tissue flaps as well for planned closure. I closed along the IMF with 2-0 Stratafix. Along the vertical with 2-0 PDS. I closed around the areola with 3-0 strata fix. 3-0 Monocryl along the vertical. 3-0 Stratafix along the IMF. I finally closed everything with running subcuticular 4-0 Monocryl and tissue glue. Brijjit's placed along the vertical incision. Brijjit's placed along the vertical incision. Estimated Blood Loss 40 Drains No Packing No Pathology Yes (Bilateral capsules) Complications No immediate complications Condition Stable Disposition PACU
[2024-07-22] MEDS: LACTATED RINGERS IRRIG 1,000 ML, LIDOCAINE 1% LOCAL INJ 50 ML, EPINEPHrine HCL INJ 1 MG... INFILTRATE (11:19)
[2024-07-22] MEDS: ceFAZolin 2 GM/D5W 50 ML 2 GM/50 ML BAG IVPB (11:19)
--- NOTE | 2024-07-22 11:48 | S_PTH ---
PATIENT: Franck Browne LOC: [facility] U#:[id number] AGE/SX: 54/F ROOM: RE07/22/[address]: Kwaku Caban MD : 1970 BED: DIS: 07/22/2024 SPEC #: [id number] RECD: 07/22/24 12:03 STATUS: RHODA RESim #: [id number] ABRAHAM: 07/22/24 11:[address]: Kwaku Caban DEPT: [facility] Surgical RECD BY: Jessica Betancourt ENTERED: 07/22/24 12:03 SP TYPE: Surgical OTHR DR: PHYSICIAN NOT ON STAFF Tissues: A - Breast Capsule B - Breast Capsule Procedures: Hematoxylin and Eosin Stain Gross and Microscopic Level 3
[2024-07-22] MEDS: ONDANSETRON INJ 4 MG/2 ML VIAL IV PUSH (15:18)
[2024-07-22] MEDS: oxyCODONE HCL (*CRX) 5 MG TAB IR PO (15:54)
== END 2024-07-22 16:28 | disposition home or self-care (01) ==
PROVIDERS: Visit Provider Surgery Plastic and Reconstructive Surgery
PROC: 0HPT0JZ Removal of Synthetic Substitute from Right Breast, Open Approach (ICD-10-PCS; CPT 19316; principal; 2024-07-22 10:30)
PROC: (CPT 19316; 2024-07-22 10:30)
DX: Z41.1 Encounter for cosmetic surgery (principal); N64.81 Ptosis of breast; M54.9 Dorsalgia, unspecified
CPT/HCPCS: 19316; 19371; 80307; 88304; A9270; J0171; J0690; J1100; J1171; J2003; J2250; J2405; J2704; J3010; J7120